=== PATIENT | female | born 1965 | race Caucasian/White ===

== ENCOUNTER → 2022-05-09 15:55 | Outpatient (CLI) | payer BC, SELFPAY ==
--- NOTE | ~2022-05-09 | XR_ITS ---
EXAMINATION: SACRUM/COCCYX DATE: 05/09/2022 16:16 INDICATION: Low back pain TECHNIQUE: Three views sacrum/coccyx FINDINGS: No prior studies for comparison. There is no displaced fracture of the sacrum. The coccyx demonstrates overall normal morphology with out acute angulation.There is moderate spondylosis at L5-S1. Sacral foramen are symmetric. IMPRESSION: 1. No acute displaced osseous abnormality of the sacrum. Suspicion for occult or nondisplaced sacral fracture can either be evaluated with CT or MRI. 2. Grossly normal morphology to the coccyx without acute angulation. However, due to the wide range of normal variation of the coccyx, acute injury would be best evaluated by clinical examination and patient's symptoms. Reviewed, dictated and finalized at location B.
== END ==
PROVIDERS: PCP Internal Medicine; Visit Provider Internal Medicine
DX: M54.50 Low back pain, unspecified (principal)
CPT/HCPCS: 72220

== ENCOUNTER 2024-05-20 11:38 | Observation (INO) | payer OTHER, SELFPAY ==
[2024-05-20] VITALS (13 sets, daily range): BP systolic 143–186; BP diastolic 77–100; PULSE 60–77; RESP 13–26; TEMP 36.6–36.7; O2SAT 94–100; BMI 31.8
--- NOTE | ~2024-05-20 | XR_ITS ---
XR chest 2V Ordering provider: Ba Dodson MD History: 58 years Female with . syncope . Comparison: April 19, 2018 FINDINGS: MEDIASTINUM: The cardiac silhouette is not enlarged. LUNGS: No infiltrates, effusions or pneumothorax. Prominent markings in the lower lobes. Focal area o f Loss of silhouette of the left hemidiaphragm is seen laterally which may indicate adjacent atelecta sis versus pneumonia. OTHER: No free air under the diaphragm. IMPRESSION: Possible atelectasis versus pneumonia in the left lower lobe. Follow-up advised. Reviewed, dictated and finalized at location A. IMPRESSION: Possible atelectasis versus pneumonia in the left lower lobe. Follow-up advised .
--- NOTE | ~2024-05-20 | CT_ITS ---
CT facial & cervical spine wo Ordering provider: Ba Dodson MD History: . trauma . Comparison: None. Technique: Thin slice axial CT of the facial bones was performed without contrast. Coronal and sagit jean reformatted images were also obtained. . Automated exposure control and iterative reconstruction technique were employed. The dose-length product was 423.55 mGy-cm. FINDINGS: PARANASAL SINUSES: Well aerated. BONES: No facial fracture including no nasal bone fracture. Dental caries are seen in the lower jaw. ORBITS AND SUPERFICIAL SOFT TISSUES: The optic globes and orbits are normal. Soft tissue swelling is seen anterior to the right orbit. Otherwise, The superficial soft tissues are normal. VISUALIZED MASTOIDS: Well aerated. LIMITED VISUALIZED BRAIN PARENCHYMA: Normal. IMPRESSION: No facial fracture. CT facial & cervical spine wo Ordering provider: Ba Dodson MD History: . trauma . Comparison: None. Technique: CT of the cervical spine was performed without contrast. Sagittal and coronal reformatted images were also obtained and reviewed. Automated exposure control and iterative reconstruction salome hnique were employed. The dose-length product was 423.55 mGy-cm. FINDINGS: VERTEBRAE: No subluxation or acute fracture. The occipital condyles are intact. DISC SPACES: Normal. Multilevel facet joint disease. Multilevel narrowing of the foramina. PARASPINOUS SOFT TISSUES: Normal. IMPRESSION: No acute osseous abnormality cervical spine. Reviewed, dictated and finalized at location A. IMPRESSION: No facial fracture. CT facial & cervical spine wo Ordering provider: Ba Dodson MD History: . trauma . Comparison: None. Technique: CT of the cervical spine was performed without contrast. Sagittal a nd coronal reformatted images were also obtained and reviewed. Automated expos ure control and iterative reconstruction technique were employed. The dose-aaron th product was 423.55 mGy-cm. FINDINGS: VERTEBRAE: No subluxation or acute fracture. The occipital condyles are intact. DISC SPACES: Normal. Multilevel facet joint disease. Multilevel narrowing of th e foramina. PARASPINOUS SOFT TISSUES: Normal.
--- NOTE | ~2024-05-20 | US_ITS ---
EXAMINATION: US carotid duplex BI DATE: 05/20/2024 15:16 INDICATION: Syncope. TECHNIQUE: Grayscale, color Doppler, and pulsed Doppler images of the cervical carotid arteries were obtained. The degree of vessel stenosis is placed in one of the following categories: normal, <50%, 5 0-69%, >=70% but less than near-occlusion, near-occlusion, or total occlusion. Note that percent sten osis relative to normal distal artery lumen diameter is indirectly measured from velocity measurement s as described by Mohan, et al. Radiology 2003; 229:340-346. COMPARISON: None. FINDINGS: RIGHT: The right common carotid artery (CCA) peak systolic velocity (PSV) is 71 cm/s. The right internal car otid artery (ICA) PSV is 79 cm/s. The right ICA end-diastolic velocity (EDV) is 30 cm/s. The right IC A/CCA PSV ratio is 1.1. Grayscale and color Doppler images yield an estimate of <50% diameter reducti on from plaque in the ICA. There is antegrade flow in the right vertebral artery. LEFT: The left CCA PSV is 83 cm/s. The left ICA PSV is 82 cm/s. The left ICA EDV is 32 cm/s. The left ICA/C CA PSV ratio is 1.0. Grayscale and color Doppler images yield an estimate of <50% diameter reduction from plaque in the ICA. There is antegrade flow in the left vertebral artery. IMPRESSION: 1. <50% stenosis in the right internal carotid artery. 2. <50% stenosis in the left internal carotid artery. Reviewed, dictated and finalized at location A.
--- NOTE | ~2024-05-20 | CT_ITS ---
CT brain wo con Ordering provider: Ba Dodson MD History: 58 years Female with . syncope, trauma . Comparison: None. Technique: CT of the head without contrast. Radiation reduction technique utilized. The dose-length product was 605.33 mGy-cm. FINDINGS: BRAIN PARENCHYMA AND CSF SPACES: No midline shift, mass effect or hemorrhage. The brain parenchyma a nd CSF spaces are otherwise normal. Empty sella turcica. VISUALIZED PARANASAL SINUSES: Well aerated. MASTOIDS: Well aerated. BONES: The bones appear intact. SOFT TISSUES: Visualized nasopharynx is normal. Hematoma seen anterior to the right orbit. Otherwise , Superficial soft tissues are normal. IMPRESSION: No acute intracranial findings. Reviewed, dictated and finalized at location A.
--- NOTE | 2024-05-20 11:49 | ECG_ITS ---
Test Date: 2024-05-20 11:56:33 Measurements Intervals [place] Rate: 61 P: 22 VT: 148 QRS: -21 QRSD: 88 T: -2 QT: 422 QTc: 427 Interpretive Statements SINUS RHYTHM LOW QRS VOLTAGE IN PRECORDIAL LEADS [QRS DEFLECTION < 1.0 mV IN CHEST LEADS] POSSIBLE ANTERIOR MYOCARDIAL INFARCTION , PROBABLY OLD [30 ms Q WAVE IN V3/V4, OR R < 0.2 mV IN V4] No previous ECG available for comparison Electronically Signed On 05-20-2024 12:41:52 CDT by Audra Carmen M.D.
--- NOTE | 2024-05-20 12:22 | ED.FALL ---
HPI - Fall General Chief Complaint: Fall Stated Complaint: glf Time Seen by Provider: 05/20/24 12:01 History of Present Illness HPI Narrative: 58-year-old female presenting to the emergency department for evaluation after having a syncopal episode. 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 Patient does not recall having any prodrome causing her to have lightheaded dizziness or the feeling she was going to pass out. Patient fell forward struck her face and did not reach out to catch herself. Patient's only complaint is forehead and facial pain patient does have an abrasion to her nose. Patient denies any prior cardiac history. Patient states but 8 years ago she was having some increased anxiety and had a cardiac workup that was negative at that time. Related Data Home Medications Medication Instructions Recorded Confirmed cetirizine 5 mg tablet 10 mg PO DAILY 05/20/24 05/20/24 cholecalciferol (vitamin D3) 25 1,000 unit PO DAILY 05/20/24 05/20/24 mcg (1,000 unit) tablet Allergies Allergy/AdvReac Type Severity Reaction Status Date / Time No Known Allergies Allergy Unknown Other Verified 09/28/18 17:55 Review of Systems Review of Systems: All systems reviewed & are unremarkable except as noted in HPI and below PMFSH Past Medical History Medical History (Updated 05/20/24 @ 20:59 by Ba Dodson MD) No significant medical problems Surgical History Surgical History History of vaginal hysterectomy (11/30/99) for uterine prolapse Family History Family History (Updated 05/20/24 @ 19:06 by Funmi Veliz PA-C) Father Smoker Chronic obstructive pulmonary disease Mother Smoker Lung cancer Son Cerebral palsy Social History Social History (Updated 05/20/24 @ 19:06 by Funmi Veliz PA-C) Social History: Surrogate medical decision maker: Dex Alas significant other. Code status: Full code. Smoking status: Never smoker Second hand tobacco smoke exposure: Yes Alcohol intake: current Drinks per week: 3 Substance use: never Substance use type: does not use Do You Feel Safe in your Home?: Yes Lack of Transportation: No Lack of Food: Never True Current Housing: I Have Housing Concerned About Future Housing: No Difficulty Paying Gas/Electric Bills: No Difficulty Paying for Meds: No Currently Unemployed: No Education: High School Diploma/GED Difficulty w/ Childcare or Family Care: No Additional living arrangements comments: Lives in [place]. 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 Spiritual care concerns: No Exam Narrative: APPEARANCE: Well appearing, no pain, no distress, well-nourished. HEAD: normocephalic, atraumatic. EYES: PERRLA/EOMI, conjunctivae clear. NOSE: Normal no drainage EARS:TMS clear with good light reflex. THROAT: Pharynx clear, no exudate. NECK: Supple. No adenopathy, no masses. RESPIRATORY: Airway patent, respirations nonlabored. Clear to auscultation bilaterally, no rales, rhonchi, wheezing. CARDIOVASCULAR: Regular rate and rhythm without murmurs rubs or gallops. ABDOMINAL: Soft, nontender, nondistended, normal bowel sounds MUSCULOSKELETAL: Moves all extremities. Strength/ROM intact, No edema, No calf tenderness. NEURO: Alert. Cranial nerves II through XII intact. Good gait. Good coordination SKIN: Abrasion to nose Course Vital Signs Vital signs: Vital Signs Temperature 98.1 F 05/20/24 11:39 Pulse Rate 71 05/20/24 11:39 Respiratory Rate 16 05/20/24 11:39 Blood Pressure 186/93 H 05/20/24 11:39 Pulse Oximetry 100 05/20/24 11:39 Oxygen Delivery Room Air 05/20/24 11:39 Temperature 98.1 F 05/20/24 11:39 Pulse Rate 66 05/20/24 17:20 Respiratory Rate 19 05/20/24 17:20
[2024-05-20 12:41] LABS: Basophils Absolute Auto 0.1 K/mm3 (0.0-0.1); Basophils Percent Auto 1.3 % (0.2-1.2); Eosinophils Absolute Auto 0.1 K/mm3 (0-0.3); Hematocrit 40.4 % (37.0-47.0); Hemoglobin 13.6 g/dL (12.0-15.0); Immature Granulocyte Absolute 0.01 K/mm3 (0.00-0.031); Immature Granulocyte Percent A 0.2 % (0-0.5); Lymphocytes Absolute Auto 1.36 K/mm3 (0.9-3.2); Lymphocytes Percent Auto 25.9 % (18.3-44.2); Mean Corpuscular HGB Conc 33.7 g/dl (32-36); Mean Corpuscular Hemoglobin 31.3 pg (26-34); Mean Corpuscular Volume 93.1 fl (80-100); Mean Platelet Volume 10.4 fl (7.4-10.4); Monocytes Absolute Auto 0.3 K/mm3 (0.1-0.6); Monocytes Percent Auto 5.7 % (2.6-8.5); Neutrophils Absolute Auto 3.5 K/mm3 (1.3-6.7); Neutrophils Percent Auto 65.9 % (45.5-73.1); Platelet Count Result 260 k/mm3 (150-375); Red Blood Count 4.34 M/mm3 (4.2-5.4); Red Cell Distribution Width 12.1 % (11.5-14.5); White Blood Count 5.3 K/mm3 (4.5-10.0)
[2024-05-20 12:54] LABS: Alanine Aminotransferase 24 U/L (6-35); Albumin Level 4.4 g/dL (3.5-5.1); Alkaline Phosphatase 67 U/L (38-126); Anion Gap 10 mmol/L (4-12); Aspartate Amino Transferase 23 U/L (14-36); Bilirubin,Total 0.6 mg/dL (0.2-1.3); Blood Urea Nitrogen 21 mg/dL (7-17); Calcium 9.3 mg/dL (8.4-10.2); Carbon Dioxide 23 mmol/L (22-30); Chloride 105 mmol/L (98-107); Estimated CRCL calculation 86 ml/min; Estimated Glomerular Filt Rate > 60; Glucose 97 mg/dL (65-110); Partial Thromboplastin Time 25.5 Seconds (22.3-36.8); Potassium 3.6 mmol/L (3.4-5.0); Sodium 138 mmol/L (137-145)
[2024-05-20 13:02] LABS: D Dimer < 0.27 ug/mL (<0.48)
[2024-05-20 13:07] LABS: Troponin I < 0.012 ng/mL (0.000-0.034)
--- NOTE | 2024-05-20 13:50 | PM.IMHP ---
H&P: HPI History of Present Illness Date/Time: 05/20/24 14:30 Chief Complaint: Syncope. Narrative: This is a very pleasant, previously healthy 58-year-old female who presented to the emergency department via EMS for evaluation after syncopal episode. The patient provides the following history. She was in her usual state of health when she went to work this morning but does report having a lot of family stress recently related to a trust. Not long prior to arrival she remembers sending a text message to a family member regarding the trust however indicates to me that she was not anxious or upset at that time. She recalls putting her cell phone into her pocket and the next thing she remembers is waking up in a prone position on the sidewalk. Bystanders think she may have tripped on a curb causing her to fall but state that she made no attempts to catch herself during the fall. The patient does not think she lost consciousness but cannot say how the fall happened. She does not recall feeling lightheaded or dizzy nor does she recall tripping or falling forward. She was able to get herself up but admits that she felt a bit ?disoriented and shook up? thereafter. There were no reports of seizure activity or bowel or bladder incontinence. She has no known history cardiac disease or dysrhythmia. She denies vertigo, near syncope, chest and pleuritic pain, palpitations, shortness of breath, edema, calf pain, nausea, vomiting, and sweats. About 8 years ago she had a cardiac workup trying a high time of stress which was reportedly negative. At the time my evaluation she feels fine and has no complaints. In the ED: Blood pressures have been in the 170s to low 180s systolic. The remainder of her vital signs have been stable. CMP and CBC were pretty unremarkable aside from a mildly elevated BUN of 21. D-dimer was normal. CT of the head, cervical spine, and facial bones were without acute findings. Chest x-ray showed possible atelectasis versus pneumonia in the left lower lobe. EKG as interpreted by the cook morning: Sinus rhythm, low QRS voltage in precordial leads, possible anterior myocardial infarction, probably old. The patient is being admitted in this setting for syncopal workup. Review of Systems Review of Systems: 12 systems were reviewed and are negative except for as per HPI. [facility] Past Medical History Medical History (Updated 10/15/24 @ 19:05 by Funmi Veliz PA-C) No significant medical problems Surgical History Surgical History History of vaginal hysterectomy (11/30/99) for uterine prolapse Family History Family History (Updated 05/20/24 @ 19:06 by Funmi Veliz PA-C) Father Smoker Chronic obstructive pulmonary disease Mother Smoker Lung cancer Son Cerebral palsy Social History Social History (Updated 05/20/24 @ 19:06 by Funmi Veliz PA-C) Social History: Surrogate medical decision maker: Dex Alas, significant other. Code status: Full code. Smoking status: Never smoker Second hand tobacco smoke exposure: Yes Alcohol intake: current Drinks per week: 3 Substance use: never Substance use type: does not use Do You Feel Safe in your Home?: Yes Lack of Transportation: No Lack of Food: Never True Current Housing: I Have Housing Concerned About Future Housing: No Difficulty Paying Gas/Electric Bills: No Difficulty Paying for Meds: No Currently Unemployed: No Education: High School Diploma/GED Difficulty w/ Childcare or Family Care: No Additional living arrangements comments: Lives in [place]. 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 Spiritual care concerns: No Meds Home Medications and Allergies Home Medications Medication Instructions Recorded Confirmed Type cetirizine 5 mg tablet 10 mg PO DAILY 05/20/24 05/20/24 History cholecalc
[2024-05-20 14:09] LABS: Add Urine Microscopic? NO; Appearance Urine Clear (Clear); Bilirubin Urine Negative (Negative); Blood Urine Negative (Negative); Color Urine Yellow (Yellow); Glucose Urine UA Negative (Negative); Ketones Urine 1+ mg/dL (Negative); Leukocyte Esterase Ur Negative LEU/UL (Negative); Nitrate Urine Negative (Negative); Protein Urine Negative (Negative); Specific Grav Ur 1.014 (1.001-1.035); Urobilinogen Urine 0.2 mg/dL (<2.0)
--- NOTE | 2024-05-20 14:12 | ECHO_ITS ---
Patient Info Name: Gissell Oakes Age: 58 years : 1965 Gender: Female Ht: 66 in Wt: 197 lbs BSA: 2.07 m2 HR: 65 bpm BP: 170 / 93 mmHg Heart Rhythm: Sinus Rhythm Technical Quality: Poor Exam Date: 05/20/2024 3:34 PM Exam Location: Echo Lab Patient Status: Emergency Admit Date: 05/20/2024 Staff Ordering Physician: Funmi Veliz PA-C Chicle Grinder Feeder: Alla Renae [facility] Attending Provider: Ba Dodson MD Referring Physician: Jose Alfredo ROBERTS; Exam Type: CA echo doppler color flow Study Info Indications R55 - Syncope and collapse - Elevated BP Complete two-dimensional, color flow and Doppler transthoracic echocardiogram is performed. Reason for Poor Study: poor patient cooperation Summary 1. Left ventricular chamber dimension is normal. 2. Left ventricular systolic function is normal, estimated at 60-65%. 3. The left ventricular diastolic function is grade I diastolic dysfunction. 4. Right ventricular systolic function is normal. 5. No significant valvular disease. Left Ventricle Left ventricular chamber dimension is normal. Left ventricular systolic function is normal, estimated at 60-65%. There is no increased left ventricular wall thickness. The left ventricular diastolic function is grade I diastolic dysfunction. Right Ventricle Right ventricular chamber dimension is normal. Right ventricular systolic function is normal. Left Atria Left atrial chamber dimension is normal. Right Atria Right atrial chamber dimension is normal. Atrial Septum Intact interatrial septum visualized by color flow imaging. Aortic Valve The aortic valve is probable trileaflet. There is no aortic valve stenosis. There is no aortic valve regurgitation. Pulmonic Valve The pulmonic valve is not well visualized. There is trace pulmonic regurgitation. Mitral Valve There is trace mitral valve regurgitation. Tricuspid Valve There is trace tricuspid valve regurgitation. Pericardium/Pleural The pericardium appears epicardial fat pad. There is no pericardial effusion. Inferior Vena Cava Normal inferior vena cava with >50% collapse upon inspiration consistent with normal right atrial pressure, 3 mmHg. Aorta The aortic root size at the sinus of Valsalva is normal. Left Ventricular Outflow Tract Name Value Normal LVOT 2D LVOT Diameter 1.9 cm LVOT Doppler LVOT Peak Gradient 5 mmHg LVOT Mean Gradient 2 mmHg LVOT VTI 23 cm LVOT VTI/AV VTI Ratio 0.8 LVOT Stroke Volume 67 ml LVOT CO 3.9 l/min LVOT CI 1.9 l/min/m2 Pulmonic Valve Name Value Normal PV Doppler PV Peak Gradient 3 mmHg PV Regurgitation Doppler MS Peak End
--- NOTE | 2024-05-20 17:54 | PC.NURSE ---
This patient, Gissell Oakes, was admitted to Medical Room 344-01. Patient/family oriented to hospital policies and general routines including ID bracelet, bed and alarms, visiting hours, pain management, procedures, bathroom and other care routines, personal items, smoking policy, room service/diet, and visiting hours. Information on how to activate the Rapid Response Team has been discussed. Patient/Family are encouraged to report perceived risks to care and to ask questions if they do not understand what they are told or what they should do.
[2024-05-21] VITALS: PULSE 74
[2024-05-21 04:00] VITALS: PULSE 93
[2024-05-21 05:45] LABS: Anion Gap 6 mmol/L (4-12); Blood Urea Nitrogen 19 mg/dL (7-17); Calcium 9.2 mg/dL (8.4-10.2); Carbon Dioxide 25 mmol/L (22-30); Chloride 107 mmol/L (98-107); Estimated CRCL calculation 76 ml/min; Estimated Glomerular Filt Rate > 60; Glucose 119 mg/dL (65-110); Magnesium 2.2 mg/dL (1.6-2.3); Potassium 4.1 mmol/L (3.4-5.0); Sodium 138 mmol/L (137-145)
[2024-05-21 06:00] VITALS: BP 144/66; PULSE 80; RESP 20; TEMP 36.8; O2SAT 94
[2024-05-21 08:00] VITALS: BP 131/67; PULSE 65; PULSE 78; RESP 18; TEMP 36.7; O2SAT 96
[2024-05-21] MEDS: LORATADINE 5 MG TABLET PO (08:38)
[2024-05-21] MEDS: CHOLECALCIFEROL 1,000 UNITS TABLET 1000 UNITS PO (08:38)
[2024-05-21 09:54] VITALS: BP 160/78; PULSE 90; RESP 18; TEMP 36.7; O2SAT 99
[2024-05-21 09:55] VITALS: BP 127/87; PULSE 95; RESP 19; TEMP 36.7; O2SAT 99
--- NOTE | 2024-05-21 11:13 | PM.DS ---
DS: Admitting Diagnosis Discharge Date 05/21/2024 Admitting Diagnosis Syncope DS: Discharge Diagnosis Discharge Diagnosis (1) Syncope: Code(s): R55 - Syncope and collapse Status: Acute Assessment and Plan: Pt had echo, cartoid US and orthostatics Bp was found to be high Pt dc with BP meds abd follow up with cardiology MD for event monitor as OPD Pt advised to quit drinking alcholol (2) Elevated blood pressure reading: Code(s): R03.0 - Elevated blood-pressure reading, without diagnosis of hypertension Status: Acute Assessment and Plan: Lisinopril started for high BPs DS: Summary Hospital Course Hospital Course: In the ED: Blood pressures have been in the 170s to low 180s systolic. The remainder of her vital signs have been stable. CMP and CBC were pretty unremarkable aside from a mildly elevated BUN of 21. D-dimer was normal. CT of the head, cervical spine, and facial bones were without acute findings. Chest x-ray showed possible atelectasis versus pneumonia in the left lower lobe. EKG as interpreted by the senior copywriter: Sinus rhythm, low QRS voltage in precordial leads, possible anterior myocardial infarction, probably old. The patient is being admitted in this setting for syncopal workup. Time Spent with Patient Time attestation: Total time spent providing and/or coordinating discharge services:50 minutes on day of DC Exam Narrative: General: Well-developed with bruise on her eye Respiratory: Lungs are clear to auscultation bilaterally. Cardiovascular: Regular rate and rhythm with S1-S2. No murmur, rub, or gallop. Gastrointestinal: Abdomen is soft, nontender, and nondistended with positive bowel sounds. Skin: Warm and dry. No rash or lesions on limited exam. Extremities: No cyanosis, clubbing, or edema. Radial and pedal pulses intact. Neurological: Alert and oriented. Cranial nerves 2-12 are grossly intact. No gross focal deficits to casual conversation. Psychiatric: Pleasant and cooperative with normal mood and affect. Judgment and insight intact. DS: Data Data Completed and Pending Labs on day of discharge: Labs from last 24 hours 05/21/24 05/21/24 05/20/24 05:27 05:25 13:56 WBC RBC Hgb Hct MCV MCH MCHC RDW Plt Count MPV Immature Gran % (Auto) Neut % (Auto) Lymph % (Auto) Mccormick % (Auto) Eos % (Auto) Baso % (Auto) Lymph # (Auto) Mccormick # (Auto) Eos # (Auto) Baso # (Auto) Abs Immat Gran (auto) Absolute Neuts (auto) Absolute Nucleated RBC Nucleated RBC % PT INR APTT D-Dimer Sodium 138 Potassium 4.1 Chloride 107 Carbon Dioxide 25 Anion Gap 6 BUN 19 H Creatinine 0.80 Estim Creat Clear Calc 76 Estimated GFR > 60 Glucose 119 H Calcium 9.2 Magnesium 2.2 Total Bilirubin AST ALT Alkaline Phosphatase Troponin I Total Protein Albumin TSH 1.380 Urine Color Yellow Urine Appearance Clear Urine pH 5.0 Ur Specific Mazon 1.014 Urine Protein Negative Urine Glucose (UA) Negative Urine Ketones 1+ H Ur Blood (Man) Negative Urine Nitrate Negative Urine Bilirubin Negative Urine Urobilinogen 0.2 Leukocyte Esterase Rfl Negative 05/20/24 12:36 WBC 5.3 RBC 4.34 Hgb 13.6 Hct 40.4 MCV 93.1 MCH 31.3 MCHC 33.7 RDW 12.1 Plt Count 260 MPV 10.4 Immature Gran % (Auto) 0.2 Neut % (Auto) 65.9 Lymph % (Auto) 25.9 Mccormick % (Auto) 5.7 Eos % (Auto) 1.0 Baso % (Auto) 1.3 H Lymph # (Auto) 1.36 Mccormick # (Auto) 0.3 Eos # (Auto) 0.1 Baso # (Auto) 0.1 Abs Immat Gran (auto) 0.01 Absolute Neuts (auto) 3.5 Absolute Nucleated RBC 0.000 Nucleated RBC % 0.0 PT 13.0 INR 1.0 APTT 25.5 D-Dimer < 0.27 Sodium 138 Potassium 3.6 Chloride 105 Carbon Dioxide 23 Anion Gap 10 BUN 21 H Creatinine 0.70 Estim Creat Clear Calc 86 Estimated GFR > 60 G
--- NOTE | 2024-05-21 11:37 | PM.CNCAR ---
Assessment and Plan Assessment and plan (1) Syncope: Code(s): R55 - Syncope and collapse Status: Acute Assessment and Plan: Echocardiogram unremarkable. Will order heart monitor through our office. Thus far, telemetry is unremarkable. Okay for discharge from my standpoint. Recommendations and plan discussed with Hospitalist. History of Present Illness History of Present Illness Consult date/time: 05/21/24 11:37 Requesting physician: Funmi Veliz PA-C Consult reason: Other (Syncope) Reason For Visit: Syncope/Head Injury Narrative: Gissell is a pleasant 58 year old female who presented after a possible syncopal episode. She was sending a text on her phone, and the next thing she remembers is waking up on the ground. She states that there were people around her who thought they saw her stumble and fall over a curb and hit her head, so she is unsure if this was a fall or a true syncopal episode. She is currently feeling well. EKG with sinus rhythm. Echo with preserved LVEF, no significant abnormalities. Head CT negative. Carotid duplex negative. Review of Systems Review of Systems: All systems reviewed & are unremarkable except as noted in HPI and below (HPI) FOR[facility]LY [facility], [facility] Past Medical History Medical History No significant medical problems Surgical History Surgical History History of vaginal hysterectomy (11/30/99) for uterine prolapse Family History Family History Father Smoker Chronic obstructive pulmonary disease Mother Smoker Lung cancer Son Cerebral palsy Social History Social History Social History: Surrogate medical decision maker: Dex Alas, significant other. Code status: Full code. Smoking status: Never smoker Second hand tobacco smoke exposure: Yes Alcohol intake: current Drinks per week: 3 Substance use: never Substance use type: does not use Do You Feel Safe in your Home?: Yes Lack of Transportation: No Lack of Food: Never True Current Housing: I Have Housing Concerned About Future Housing: No Difficulty Paying Gas/Electric Bills: No Difficulty Paying for Meds: No Currently Unemployed: No Education: High School Diploma/GED Difficulty w/ Childcare or Family Care: No Additional living arrangements comments: Lives in [place]. 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. Spiritual care concerns: No Meds Home Medications and Allergies Home Medications Medication Instructions Recorded Confirmed Type cetirizine 5 mg tablet 10 mg PO DAILY 05/20/24 05/20/24 History cholecalciferol (vitamin D3) 25 1,000 unit PO DAILY 05/20/24 05/20/24 History mcg (1,000 unit) tablet Allergies Allergy/AdvReac Type Severity Reaction Status Date / Time No Known Allergies Allergy Unknown Other Verified 09/28/18 17:55 Vital Signs Vital Signs - 24 hr 05/20/24 11:39 05/20/24 11:47 05/20/24 13:04 Temperature 36.7 C Pulse Rate 71 63 Respiratory Rate 16 13 Blood Pressure 186/93 H 186/93 H Pulse Oximetry 100 100 99 Oxygen Delivery Room Air 05/20/24 13:57 05/20/24 14:02 05/20/24 16:19 Temperature Pulse Rate 73 65 72 Respiratory Rate 26 H 20 Blood Pressure 180/87 H 170/93 H 155/77 H Pulse Oximetry 100 100 Oxygen Delivery 05/20/24 16:21 05/20/24 16:24 05/20/24 14:17 Temperature Pulse Rate 77 77 60 Respiratory Rate 13 Blood Pressure 170/100 H 146/92 H 176/81 H Pulse Oximetry 99 Oxygen Delivery 05/20/24 16:18 05/20/24 16:21 05/20/24 17:20 Temperature Pulse Rate 71 63 66 Respiratory Rate 18 19 19 Blood Pressure 155/77 H 146/92 H 143/77 H Pulse Oximetry 94 100 99 Oxygen Delivery 05/20/24 20:00 05/20/24 20:00 05/20/24 20
--- NOTE | 2024-05-21 12:03 | PC.NURSE ---
RN spoke with patient and educated her on event monitor. RN offered to take patient down to cardiology office to have event monitor but patient is refusing and states she does not want event monitor placed.
== END 2024-05-21 12:05 | disposition home or self-care (01) ==
LOC: ANHED 12:09 → ANH3MEDSUR 17:01 → ANH3MED 17:43
PROVIDERS: Internal Medicine; Physician Assistant; Admitting Provider Student in an Organized Health Care Education/Training Program; Emergency Provider Emergency Medicine; PCP Internal Medicine; Visit Provider Family Medicine
DX: R55 Syncope and collapse (principal); R03.0 Elevated blood-pressure reading, without diagnosis of hypertension; S00.31XA Abrasion of nose, initial encounter; W18.30XA Fall on same level, unspecified, initial encounter; Z79.899 Other long term (current) drug therapy
CPT/HCPCS: 36415; 70450; 70486; 71046; 72125; 80048; 80053; 81003; 83735; 84443; 84484; 85025; 85380; 85610; 85730; 93005; 93306; 93880; 99285; A9270; G0378